=== PATIENT | male | born 1995 ===

== ENCOUNTER 2025-01-24 10:11 | Day surgery (SDC) | payer OTHER ==
[~2025-01-24 10:11] MED LIST: LIDOCAINE 1% (10MG/ML) FOR IV START INTRADERMA PRN
[2025-01-24 10:59] VITALS: TEMP 98.4
[2025-01-24] MEDS: LACTATED RINGERS 1,000 ML IV SCH (11:09)
[2025-01-24] MEDS: IV FLUID CONTINUATION 1,000 ML IV ONE (11:16)
[2025-01-24] MEDS ORDERED: PROPOFOL 10 MG/ML 20 ML VIAL IV ONE (12:22)
[2025-01-24] MEDS ORDERED: LIDOCAINE 2% (PF) 20 MG/ML 5 ML VIAL ONE (12:22)
--- NOTE | 2025-01-24 12:28 | P.PCN ---
Date of Procedure: 01/24/25 Procedure(s) Performed: BRIEF HISTORY: Patient is a 29-year-old, pleasant, male scheduled for an upper endoscopy as a part of evaluation of longstanding istory of epigastric pain and GERD for which she is on omeprazole 20 mg daily and doing much better.. PROCEDURE PERFORMED: Esophagogastroduodenoscopy with biopsy. PREOPERATIVE DIAGNOSIS: GERD/epigastric pain. IV sedation per anesthesia. PROCEDURE: After informed consent was obtained, the patient was brought into the endoscopy unit. IV conscious sedation was administered by Anesthesia under continuous monitoring. Initially the Olympus GIF-140 video endoscope was inserted into the mouth. Esophagus intubated without any difficulty. It was gradually advanced into the stomach and duodenum and carefully examined. The bulb and the second part of the duodenum appeared normal. The scope at this time was withdrawn to the stomach, adequately insufflated with air, and upon careful examination, mucosa of the antrum, had scattered erosions consistent with erosive gastritis and biopsies were done from this area. Mucosa body, cardia and the fundus appeared normal. The scope was then withdrawn into the esophagus. The GE junction was located at 40 cm from the incisors. The esophagus appeared normal. There were no erosions or ulcerations seen and the patient tolerated the procedure well. IMPRESSION: 1. Antral erosive gastritis. 2. Normal-appearing esophagus with no ulcer esophagitis or Sinclair's esophagus. RECOMMENDATIONS: The findings of this examination were discussed with the patient as well as his family. Follow-up with the biopsy results. He was advised to continue with omeprazole 20 mg daily and follow antireflux measures.
[2025-01-24 13:00] VITALS: BP 104/71; PULSE 64; RESP 16
== END 2025-01-24 13:10 ==
LOC: ORWHC2ENDO 10:11
PROVIDERS: ATTEND Internal Medicine Gastroenterology
DX: K29.50 Unspecified chronic gastritis without bleeding (principal); K21.9 Gastro-esophageal reflux disease without esophagitis; F41.0 Panic disorder [episodic paroxysmal anxiety]; F32.A Depression, unspecified; Z79.2 Long term (current) use of antibiotics; Z79.899 Other long term (current) drug therapy; Z88.0 Allergy status to penicillin
CPT/HCPCS: 88305; 88342; 43239; J2704; J2003